=== PATIENT | male | born 1985 | race Hispanic/Latino ===

== ENCOUNTER 2017-06-27 12:37 | Emergency (ER) | payer MEDICARE ==
[2017-06-27] MEDS ORDERED: Morphine 4 MG/ML VIAL IVP ONE (13:33)
[2017-06-27] MEDS ORDERED: Sodium Chloride 0.9% 1,000 ML IV STA ×3 (13:33→16:30)
[2017-06-27] MEDS ORDERED: Morphine 4 MG/ML VIAL ONE (14:02)
[2017-06-27 14:06] LABS: ABG ALLEN TEST YES; ARTERIAL BLOOD GAS HEMOGLOBIN 15.2 g/dL (11.7-17.4); ARTERIAL BLOOD GAS O2 CAPACITY 20.3 mL/dL (16-24); ARTERIAL BLOOD GAS O2 CONTENT 20.4 ML/dL (15-23); ARTERIAL BLOOD GAS O2 SAT 100.3 % (95-98); ARTERIAL BLOOD GAS PCO2 34 mm/Hg (35-45); ARTERIAL BLOOD GAS PH 7.45 (7.35-7.45); ARTERIAL BLOOD GAS PO2 95 mm/Hg (80-100); ARTERIAL BLOOD GAS TCO2 24.6 mmol/L (22-28)
[2017-06-27 14:14] LABS: BASO # 0.1 K/uL (0.0-0.2); BASO % 0.9 % (0.0-2.0); EOS # 0.1 K/uL (0.0-0.7); EOS % 0.6 % (0.0-4.0); HEMOGLOBIN 14.5 g/dL (12.0-18.0); LYMPH # 2.1 K/uL (1.0-4.3); LYMPH % 19.2 % (20.0-40.0); MEAN CELL VOLUME 77.8 fl (80.0-94.0); MEAN CORPUSCULAR HEMOGLOBIN 25.2 pg (27.0-31.0); MEAN CORPUSCULAR HGB CONC 32.4 g/dL (33.0-37.0); MEAN PLATELET VOLUME 7.6 fl (7.2-11.7); MONO # 0.8 K/uL (0.0-0.8); MONO % 7.4 % (0.0-10.0); NEUT # 7.8 K/uL (1.8-7.0); NEUT % 71.9 % (50.0-75.0); NRBC % 0.3 % (0.0-0.0); RBC 5.77 Mil/uL (4.40-5.90); WHITE BLOOD COUNT 10.9 K/uL (4.8-10.8)
[2017-06-27 14:31] LABS: BLOOD UREA NITROGEN 15 mg/dl (9-20); GFR AFRICAN-AMERICAN > 60; GFR NON-AFRICAN AMERICAN > 60
[2017-06-27 14:32] LABS: ALB/GLOB RATIO 1.1 (1.0-2.1); ALBUMIN 4.2 g/dL (3.5-5.0)
[2017-06-27 14:33] LABS: ALT/SGPT 88 U/L (21-72); AST/SGOT 76 U/L (17-59); LIPASE 217 U/L (23-300)
--- NOTE | 2017-06-27 14:39 | ED PDOC ---
HPI: Abdomen Time Seen by Provider: 06/27/17 12:58 Chief Complaint (Nursing): Abdominal Pain Chief Complaint (Provider): Abdominal Pain History Per: Patient History/Exam Limitations: no limitations Onset/Duration Of Symptoms: Days (x2) Current Symptoms Are (Timing): Still Present Severity: Severe Location Of Pain/Discomfort: RLQ Associated Symptoms: Nausea. denies: Vomiting, Diarrhea Additional Complaint(s): 32 year old male presents to ED with complaints of abdominal pain x2 days and has a past medical history of diabetes mellitus and kidney stones. Localizes pain to the RLQ and describes it as severe in intensity. (+) nausea and tactile fever. (-) vomiting or diarrhea. Patient also complains of hyperglycemia and admits that he is noncompliant with his diabetes medication (insulin). Patient notes that he has not seen a doctor recently due to difficulty with living arrangements. PCP: None. Past one used to be in [place]. Past Medical History Reviewed: Historical Data, Nursing Documentation, Vital Signs Vital Signs: Last Vital Signs Temp 97.6 F 06/27/17 19:13 Pulse 78 06/27/17 19:13 Resp 19 06/27/17 19:13 BP 120/78 06/27/17 19:13 Pulse Ox 99 06/28/17 23:47 - Medical History PMH: Diabetes, Kidney Stones - Surgical History Surgical History: Cholecystectomy Other surgeries: Right knee surgery - Family History Family History: States: Unknown Family Hx - Home Medications Home Medications: Ambulatory Orders Medication Instructions Recorded Insulin Aspart, Recombinant 25 units SC TID 06/27/17 [Novolog] Insulin Glargine, Recombina 50 units SC HS 06/27/17 [Lantus] - Allergies Allergies/Adverse Reactions: Allergies Allergy/AdvReac Type Severity Reaction Status Date / Time iodine Allergy ITCHING Verified 06/27/17 12:42 NSAIDS (Non-Steroidal Allergy ANAPHYLAXIS Verified 06/27/17 12:42 Anti-Inflamma Review of Systems ROS Statement: Except As Marked, All Systems Reviewed And Found Negative Constitutional: Positive for: Fever (tactile), Other (Hyperglycemia) Gastrointestinal: Positive for: Nausea, Abdominal Pain (severe RLQ pain). Negative for: Vomiting, Diarrhea Physical Exam - Reviewed Nursing Documentation Reviewed: Yes Vital Signs Reviewed: Yes - Physical Exam Appears: Positive for: Non-toxic, No Acute Distress (Comfortable, obese) Head Exam: Positive for: ATRAUMATIC, NORMOCEPHALIC Skin: Positive for: Normal Color, Warm, Dry Eye Exam: Positive for: Normal appearance, EOMI, PERRL ENT: Positive for: Normal ENT Inspection Neck: Positive for: Normal, Painless ROM, Supple Cardiovascular/Chest: Positive for: Regular Rate, Rhythm, Tachycardia Respiratory: Positive for: Normal Breath Sounds. Negative for: Respiratory Distress Gastrointestinal/Abdominal: Positive for: Soft, Tenderness (RLQ tenderness) Extremity: Positive for: Normal ROM. Negative for: Deformity Neurologic/Psych: Positive for: Alert, Oriented. Negative for: Motor/Sensory Deficits - Laboratory Results Result Diagrams: 06/27/17 13:50 06/27/17 13:50 - ECG ECG: Positive for: Interpreted By Me, Viewed By Me ECG Rhythm: Positive for: Normal QRS, Normal ST Segment, Sinus Tachycardia Rate: 130 O2 Sat by Pulse Oximetry: 99 (RA) Pulse Ox Interpretation: Normal Medical Decision Making Medical Decision Makin Initial impression: abdominal pain, hyperglycemia DDx: DKA v uncontrolled diabetes mellitis DDx: acute appendicitis, UTI, kidney stones Initial plan: * ABG * EKG * Labs * UDrug screen * Lipase * UDip * Morphine 4mg IVP * NS IV * Zofran 4mg IV * BCx * CT abdomen * Scribe Attestation: Documented by Jenni Galeana acting as a scribe Caitlyn Sylvester MD. Scribe Attestation: All medical record entries made by the Scribe were at my direction and personally dictated by me. I have reviewed the chart and agree that the record accurately reflects my personal performance of the history, physical exam, medical decision making, and the department course for this patient. I have also personally directed, reviewed, and agree with the discharge instructions and disposition. Disposition - Clinical Impression Clinical Impression: Uncontrolled diabetes mellitus, Abdominal pain - Patient ED Disposition Is Patient to be Admitted: Transfer of Care Counseled Patient/Family Regarding: Studies Performed, Diagnosis - Disposition Disposition: Transfer of Care Disposition Time: 15:00 Condition: STABLE Additional Instructions: FOLLOW-UP WITH YOUR PMD IN [facility] [place] WITHIN 2 DAYS FOR REEVALUATION. Instructions: Hyperglycemia, Adult, Acute Abdomen (Belly Pain), Diabetic Meal Planning Patient Signed Over To: Peyton Salvador Handoff Comments: pending hyperglycemia correction, CT results, and final disposition - POA Present On Arrival: Poor Glycemic Control
[2017-06-27 14:44] LABS: BARBITURATES, UR NEGATIVE (NEGATIVE); BENZODIAZEPINES, UR NEGATIVE (NEGATIVE); OPIATES, UR NEGATIVE (NEGATIVE); PHENCYCLIDINE, UR NEGATIVE (NEGATIVE)
--- NOTE | 2017-06-27 14:46 | CARD ---
APPROVED REPORT EKG Measurement Heart [id number] <Conclusion> Sinus tachycardia Possible Left atrial enlargement Rightward axis Cannot rule out Anterior infarct, age undetermined (Check chest lead placement) Abnormal ECG
[2017-06-27] MEDS ORDERED: Insulin Regular 100 units/ml IV STA (15:07)
--- NOTE | 2017-06-27 15:36 | ED PDOC ---
- Laboratory Results Result Diagrams: 06/27/17 13:50 06/27/17 13:50 - ECG O2 Sat by Pulse Oximetry: 99 (RA) Pulse Ox Interpretation: Normal Medical Decision Making Medical Decision Making: Receiving sign out: Patient signed out to me by Dr. Sylvester at 1500 pending decreasing accucheck levels, CT results. Scribe Attestation: Documented by Lola Klein acting as a scribe for Peyton Salvador MD. Provider Attestation: All medical record entries made by the Scribe were at my direction and personally dictated by me. I have reviewed the chart and agree that the record accurately reflects my personal performance of the history, physical exam, medical decision making, and the department course for this patient. I have also personally directed, reviewed, and agree with the discharge instructions and disposition. Disposition - Clinical Impression Clinical Impression: Uncontrolled diabetes mellitus, Abdominal pain - POA Present On Arrival: Poor Glycemic Control - Disposition Disposition: Routine/Home Disposition Time: 18:55 Condition: IMPROVED Additional Instructions: FOLLOW-UP WITH YOUR PMD IN [facility] [place] WITHIN 2 DAYS FOR REEVALUATION. Instructions: Hyperglycemia, Adult, Acute Abdomen (Belly Pain), Diabetic Meal Planning Forms: [facility] (Khmer)
--- NOTE | 2017-06-27 16:16 | CT ---
PROCEDURE: CT Abdomen and Pelvis without intravenous contrast HISTORY: RLQ pain right flank COMPARISON: None. TECHNIQUE: CT scan of the abdomen and pelvis was performed without the use of intravenous contrast.. Contrast Dose: None Radiation dose: Total exam DLP = Total exam DLP = 2247 mGy-cm. This CT exam was performed using one or more of the following dose reduction techniques: Automated exposure control, adjustment of the mA and/or kV according to patient size, and/or use of iterative reconstruction technique. FINDINGS: LOWER THORAX: Evaluation of the lung bases reveals no evidence of infiltrate, effusion, or nodule. LIVER: Evaluation of the liver is limited on this noncontrast exam. Liver is diffusely fatty infiltrated without evidence of focal mass or intrahepatic ductal dilatation. Small amount of focal fatty sparing is appreciated adjacent to the fissures. GALLBLADDER AND BILE DUCTS: Gallbladder appears to been previously removed. Common bile duct is normal in size for a post cholecystectomy patient of this age. No intrahepatic ductal dilatation is noted. PANCREAS: Unremarkable. No gross lesion or ductal dilatation. SPLEEN: Unremarkable. ADRENALS: Unremarkable. No mass. KIDNEYS AND URETERS: Kidneys show no evidence of hydronephrosis or perinephric change. There is a very small round medial midpole probable liver cyst noted on axial 45 through 47. No appreciable solid masses are noted. No renal calculi are seen. No ureteral calculi are clearly identified. VASCULATURE: Unremarkable. No aortic aneurysm. BOWEL: Unremarkable. No obstruction. No gross mural thickening. APPENDIX: Appendix not well appreciated although no right lower quadrant inflammatory process is seen. Terminal ileum is unremarkable. PERITONEUM: Unremarkable. No free fluid. No free air. LYMPH NODES: Unremarkable. No enlarged lymph nodes. BLADDER: Unremarkable. REPRODUCTIVE: Unremarkable. BONES: No acute fracture. OTHER FINDINGS: None. IMPRESSION: No appreciable evidence of obstructive uropathy. No significant perinephric change, hydronephrosis, or ureteral calculus. Probable small medial right renal cyst in the midpole region. Moderate fatty infiltration of the liver. Status post cholecystectomy. No right lower quadrant inflammatory process identified. No bowel obstruction seen. No ascites.
[2017-06-27 17:13] LABS: CALCIUM 9.6 mg/dL (8.4-10.2)
[2017-06-27 17:54] VITALS: RESP 19
[2017-06-27 19:15] VITALS: BP 120/78; TEMP 97.6
[2017-06-28 23:47] VITALS: O2SAT 99
[2017-06-30 16:37] VITALS: PULSE 130
== END 2017-06-27 19:15 | disposition home or self-care (01) ==
LOC: H.ER 12:37
DX: E11.65 Type 2 diabetes mellitus with hyperglycemia (principal); Z79.4 Long term (current) use of insulin; R10.9 Unspecified abdominal pain; K76.0 Fatty (change of) liver, not elsewhere classified; Z87.442 Personal history of urinary calculi; Z90.49 Acquired absence of other specified parts of digestive tract
CPT/HCPCS: 36600; 74176; 80053; 82803; 82948; 83690; 85025; 87040; 93005; 96374; 96375; 99283; G0480; J2270; J2405; J7040